=== PATIENT | female | born 1995 | race Caucasian/White ===

== ENCOUNTER 2018-05-20 10:41 | Inpatient (IN) | payer MEDICAID ==
--- NOTE | 2018-05-20 11:39 | History and Physical Report ---
History of Present Illness Date of examination: 05/20/18 Date of admission: 05/20/18 10:41 Chief complaint: Induction of labor History of present illness: Pt is a 23yo BF EDC 05/27/18; EGA 39 0/7 weeks presents to L&D for induction of labor due to Morbid Obesity, Polyhydramnios and suspected macrosomia. She received late care at [facility] since 27 weeks and co-managed by [facility]. records are available and GBS is Positive. Past History Past Medical History: no pertinent history Family/Genetic History: none Social history: no significant social history, single - Obstetrical History Expected Date of Delivery: 05/27/18 Actual Gestation: 39 Week(s) 0 Day(s) : 1 Medications and Allergies Allergies Allergy/AdvReac Type Severity Reaction Status Date / Time Penicillins Allergy Hives Verified 05/16/18 21:11 Home Medications Medication Instructions Recorded Confirmed Last Taken Type No Known Home Medications [No 05/16/18 05/16/18 Unknown History Reported Home Medications] Review of Systems All systems: negative - Physical Exam Breasts: Positive: deferred Cardiovascular: Regular rate Lungs: Positive: Clear to auscultation Abdomen: Positive: normal appearance Genitourinary (Female): Positive: normal external genitalia Uterus: Positive: enlarged Extremities: Positive: normal - Obstetrical FHR: category 1 Uterine Contraction Monitor Mode: External Cervical Dilatation: 3 Cervical Effacement Percentage: 80 station: -2 Uterine Contraction Pattern: Irregular Uterine Tone Measurement Phase: Contraction Uterine Contraction Intensity: Mild Results Result Diagrams: 05/20/18 13:00 All other labs normal. Ultrasound: report reviewed Assessment and Plan - Patient Problems (1) 39 weeks gestation of Onset Date: 05/20/18 Current Visit: Yes Status: Acute Plan to address problem: A: IUP @ 39 0/7 weeks Morbid Obesity Polyhydramnios +GBS P: Admit to L&D for pitocin induction of labor IV Clindamycin (2) Morbid (severe) obesity due to excess calories Onset Date: 05/20/18 Current Visit: Yes Status: Acute (3) Polyhydramnios affecting in third trimester Onset Date: 05/20/18 Current Visit: Yes Status: Acute
[2018-05-20] MEDS ORDERED: SUBLIMAZE IV PRN (11:41)
[2018-05-20] MEDS ORDERED: PHENERGAN PO PRN (11:41)
[2018-05-20] MEDS ORDERED: ZOFRAN IV PRN (11:41)
[2018-05-20] MEDS ORDERED: STADOL IV PRN (11:41)
[2018-05-20] MEDS ORDERED: MINERAL OIL PO PRN (11:41)
[2018-05-20] MEDS ORDERED: BRETHINE SUB-Q PRN (11:41)
[2018-05-20] MEDS ORDERED: BRETHINE IVP PRN (11:41)
[2018-05-20] MEDS ORDERED: XYLOCAINE 2% INFILTRATI ONE (11:41)
[2018-05-20] MEDS ORDERED: LACTATED RINGERS 1,000 ML ONE (11:42)
[2018-05-20] MEDS ORDERED: PITOCin/NS 30 UNIT/500ML 30 UNITS/500 ML BAG IV SCH ×2 (12:00)
[2018-05-20] MEDS ORDERED: PITOCin/NS 20 UNIT/1000ML DRIP 20 UNITS/1,000 ML BAG IV SCH (12:00)
[2018-05-20] MEDS: CLEOCIN 900 MG/50 mL 900 MG/50 ML BAG IV SCH ×2 (14:00→22:00)
[2018-05-20 15:02] LABS: Hematocrit 51.1 % (30.3-42.9); Hemoglobin 16.8 gm/dl (10.1-14.3); Mean Corpuscular HGB Conc 33 % (30-34); Mean Corpuscular Volume 86 fl (79-97); Platelet Count 184 K/mm3 (140-440); Red Blood Count 5.93 M/mm3 (3.65-5.03); Red Cell Distribution Width 13.4 % (13.2-15.2)
[2018-05-20 15:18] LABS: Alanine Aminotransferase 109 units/L (7-56)
[2018-05-20] MEDS: LACTATED RINGERS 1,000 ML IV SCH (17:24)
[2018-05-20] MEDS ORDERED: AMBIEN PO PRN (23:12)
--- NOTE | 2018-05-21 10:26 | Progress Note ---
Assessment and Plan - Patient Problems (1) 39 weeks gestation of Onset Date: 05/20/18 Current Visit: Yes Status: Acute Plan to address problem: A: IUP @ 39 1/7 weeks Morbid Obesity Polyhydramnios +GBS P: Continue with pitocin induction of labor IV Clindamycin (2) Morbid (severe) obesity due to excess calories Onset Date: 05/20/18 Current Visit: Yes Status: Acute (3) Polyhydramnios affecting in third trimester Onset Date: 05/20/18 Current Visit: Yes Status: Acute Subjective - Subjective Date of service: 05/21/18 Principal diagnosis: IUP @ 39 1/7 weeks; Morbid Obesity; Polyhydramnios Interval history: Pt is a 23yo BF EDC 05/27/18; EGA 39 1/7 weeks presents to L&D for induction of labor due to Morbid Obesity, Polyhydramnios and suspected macrosomia. She received late care at [facility] since 27 weeks and co-managed by [facility]. records are available and GBS is Positive. She received low dose pitocin last night, and will increase today. Patient reports: movement normal, contractions, no new complaints, no loss of fluid, no vaginal bleeding Objective - Vital Signs Vital Signs: Vital Signs - 12hr 05/20/18 05/20/18 05/20/18 22:33 22:48 23:03 Temperature Pulse Rate 85 83 81 Respiratory Rate Blood Pressure 127/81 122/62 120/64 05/21/18 05/21/18 05/21/18 00:25 08:05 08:09 Temperature 97.9 F Pulse Rate 78 80 Respiratory 14 17 Rate Blood Pressure 104/53 - Exam Abdomen: Present: normal appearance, soft Uterus: Present: normal FHR: category 1 Uterine Contraction Monitor Mode: External Uterine Contraction Pattern: Irregular Uterine Contraction Intensity: Mild - Labs Labs: Abnormal Labs 05/20/18 05/20/18 13:00 13:00 RBC 5.93 H Hgb 16.8 H Hct 51.1 H AST 80 H ALT 109 H Laboratory Results - last 24 hr 05/20/18 05/20/18 05/20/18 13:00 13:00 13:00 WBC 5.4 RBC 5.93 H Hgb 16.8 H Hct 51.1 H MCV 86 MCH 28 MCHC 33 RDW 13.4 Plt Count 184 AST 80 H ALT 109 H Blood Type O POSITIVE Antibody Screen Negative
[2018-05-21] MEDS: LACTATED RINGERS 1,000 ML IV SCH ×3 (12:00→20:40)
[2018-05-21] MEDS: CLEOCIN 900 MG/50 mL 900 MG/50 ML BAG IV SCH ×2 (13:09→20:40)
[2018-05-21] MEDS ORDERED: NARCAN 2 MG/2 ML IV PRN (14:20)
--- NOTE | 2018-05-21 14:20 | Anesthesia Consultation ---
Anesthesia Consult and Med Hx Date of service: 05/21/18 - Airway Anesthetic Teeth Evaluation: Good ROM Head & Neck: Adequate Mental/Hyoid Distance: Adequate Mallampati Class: Class II Intubation Access Assessment: Probably Good - Pulmonary Exam CTA: Yes - Cardiac Exam Cardiac Exam: RRR - Pre-Operative Health Status ASA Pre-Surgery Classification: ASA2 Proposed Anesthetic Plan: Epidural - Pulmonary Hx Asthma: No - Cardiovascular System Hx Hypertension: No - Central Nervous System Hx Seizures: No Hx Psychiatric Problems: No - Endocrine Hx Renal Disease: No Hx Hypothyroidism: No Hx Hyperthyroidism: No - Hematic Hx Anemia: No Hx Sickle Cell Disease: No - Other Systems Hx Alcohol Use: No
[2018-05-21] MEDS: fentaNYL-BUPIV 2 MCG/ML-0.125% 200 MCG/100 ML BAG EPIDURAL SCH ×2 (14:45→21:34)
--- NOTE | 2018-05-21 19:19 | Progress Note ---
Assessment and Plan - Patient Problems (1) 39 weeks gestation of Onset Date: 05/20/18 Current Visit: Yes Status: Acute Plan to address problem: A: IUP @ 39 1/7 weeks Morbid Obesity Polyhydramnios +GBS P: Continue with pitocin induction of labor Will reevaluate in 2 hours for progress IV Clindamycin (2) Morbid (severe) obesity due to excess calories Onset Date: 05/20/18 Current Visit: Yes Status: Acute (3) Polyhydramnios affecting in third trimester Onset Date: 05/20/18 Current Visit: Yes Status: Acute Subjective - Subjective Date of service: 05/21/18 Principal diagnosis: IUP @ 39 1/7 weeks; Morbid Obesity; Polyhydramnios Interval history: Pt is a 23yo BF EDC 05/27/18; EGA 39 1/7 weeks presents to L&D for induction of labor due to Morbid Obesity, Polyhydramnios and suspected macrosomia. She received late care at [facility] since 27 weeks and co-managed by [facility]. records are available and GBS is Positive. She is currently on pitocin 6mu/min and alvarado q [address] mins [address] epidural in place. Patient reports: loss of fluid, movement normal, contractions, no new complaints, no vaginal bleeding Objective - Vital Signs Vital Signs: Vital Signs - 12hr 05/21/18 05/21/18 05/21/18 08:05 08:09 12:10 Temperature 97.9 F Pulse Rate 80 83 Respiratory 17 Rate Blood Pressure 104/53 126/72 O2 Sat by Pulse Oximetry 05/21/18 05/21/18 05/21/18 12:40 13:12 14:30 Temperature Pulse Rate 90 101 H 95 H Respiratory Rate Blood Pressure 123/75 125/68 O2 Sat by Pulse 98 Oximetry 05/21/18 05/21/18 05/21/18 14:34 14:35 14:36 Temperature Pulse Rate 89 92 H 93 H Respiratory Rate Blood Pressure 134/57 139/64 O2 Sat by Pulse 98 Oximetry 05/21/18 05/21/18 05/21/18 14:40 14:43 14:45 Temperature Pulse Rate 87 86 93 H Respiratory Rate Blood Pressure 117/74 118/73 O2 Sat by Pulse 98 94 97 Oximetry 05/21/18 05/21/18 05/21/18 14:50 14:52 14:54 Temperature Pulse Rate 95 H 96 H 101 H Respiratory Rate Blood Pressure 118/58 109/55 O2 Sat by Pulse 97 Oximetry 05/21/18 05/21/18 05/21/18 14:55 14:58 15:00 Temperature Pulse Rate 112 H 121 H 103 H Respiratory Rate Blood Pressure 88/48 O2 Sat by Pulse 98 100 Oximetry 05/21/18 05/21/18 05/21/18 15:05 15:07 15:10 Temperature Pulse Rate 116 H 115 H 96 H Respiratory Rate Blood Pressure 131/79 131/75 111/53 O2 Sat by Pulse 98 98 Oximetry 05/21/18 05/21/18 05/21/18 15:15 15:19 15:20 Temperature Pulse Rate 73 87 86 Respiratory Rate Blood Pressure 129/68 117/62 O2 Sat by Pulse 99 99 Oximetry 05/21/18 05/21/18 05/21/18 15:21 15:25 15:28 Temperature Pulse Rate 94 H 89 96 H Respiratory Rate Blood Pressure 120/70 116/69 113/57 O2 Sat by Pulse 100 Oximetry 05/21/18 05/21/18 05/21/18 15:30 15:34 15:35 Temperature Pulse Rate 108 H 92 H 97 H Respiratory Rate Blood Pressure 133/75 O2 Sat by Pulse 100 100 Oximetry 05/21/18 05/21/18 05/21/18 15:37 15:40 15:43 Temperature Pulse Rate 90 88 104 H Respiratory Rate Blood Pressure 114/62 110/69 O2 Sat by Pulse 100 Oximetry 05/21/18 05/21/18 05/21/18 15:45 15:46 15:49 Temperature Pulse Rate 86 87 77 Respiratory Rate Blood Pressure 115/75 113/67 O2 Sat by Pulse 100 Oximetry 05/21/18 05/21/18 05/21/18 15:52 15:55 16:07 Temperature Pulse Rate 84 75 82 Respiratory Rate Blood Pressure 115/68 107/57 109/56 O2 Sat by Pulse Oximetry 05/21/18 05/21/18 05/21/18 16:10 16:12 16:16 Temperature Pulse Rate 76 85 81 Respiratory Rate Blood Pressure 99/54 103/60 129/69 O2 Sat by Pulse Oximetry 05/21/18 05/21/18 05/21/18 16:47 17:07 17:12 Temperature Pulse Rate 88 88 104 H Respiratory Rate Blood Pressure 122/71 O2 Sat by Pulse 97 98 Oximetry 05/21/18 05/21/18 05/21/18 17:17 17:22 17:27 Temperature Pulse Rate 85 89 85 Respiratory Rate Blood Pressure O2 Sat by Pulse 97 96 97 Oximetry 05/21/18 05/21/18 05/21/18 17:32 17:37 17:42 Temperature Pulse Rate 88 95 H 108 H Respiratory Rate Blood Pressure O2 Sat by Pulse 97 96 98 Oximetry 05/21/18 05/21/18 05/21/18 17:47 17:52 17:57 Temperature Pulse Rate 89 94 H 78 Respiratory Rate Blood Pressure O2 Sat by Pulse 97 97 96 Oximetry 05/21/18 05/21/18 05/21/18 18:02 18:07 18:12 Temperature Pulse Rate 80 73 89 Respiratory Rate Blood Pressure O2 Sat by Pulse 96 96 96 Oximetry 05/21/18 05/21/18 05/21/18 18:17 18:19 18:22 Temperature Pulse Rate 77 75 74 Respiratory Rate Blood Pressure 101/51 O2 Sat by Pulse 96 96 Oximetry 05/21/18 05/21/18 05/21/18 18:27 18:32 18:37 Temperature Pulse Rate 101 H 85 88 Respiratory Rate Blood Pressure O2 Sat by Pulse 97 98 97 Oximetry 05/21/18 05/21/18 05/21/18 18:42 18:47 18:52 Temperature Pulse Rate 88 87 103 H Respiratory Rate Blood Pressure 113/57 O2 Sat by Pulse 97 97 96 Oximetry 05/21/18 05/21/18 05/21/18 18:57 19:02 19:07 Temperature Pulse Rate 83 88 85 Respiratory Rate Blood Pressure O2 Sat by Pulse 97 96 96 Oximetry 05/21/18 19:12 Temperature Pulse Rate 89 Respiratory Rate Blood Pressure O2 Sat by Pulse 97 Oximetry - Exam Uterus: Present: normal FHR: category 1 Cervical Dilatation: 4.5 Cervical Effacement Percentage: 70 station: -2 Uterine Contraction Pattern: Regular Uterine Tone Measurement Phase: Contraction Uterine Contraction Intensity: Strong/Firm - Labs Labs: Abnormal Labs 05/20/18 05/20/18 13:00 13:00 RBC 5.93 H Hgb 16.8 H Hct 51.1 H AST 80 H ALT 109 H Laboratory Results - last 24 hr 05/20/18 13:00 RPR Nonreactive
--- NOTE | 2018-05-21 21:22 | Procedure Note ---
Date of procedure: 05/21/18 (epidural placement) Pre-op diagnosis: term labor Procedure: placement of epidural midline identified as pt in sitting position. TO conducted. sterile prep with betadine and gloves, mask, and sterile drape in place. skin localized with 1% lido fro epidural kit and then 150mm touhgy advanced via loss of resistance to ascertain space, cath advanced and test dose administered which was negative. dressing placed in sterile fashion bolus of 8cc of .25% bup. when in supine position. BP did respond to epidural placement and treated with one dose of 100mcgs of phenlephrine. Patient then stable and comfortable.procedure completed at 1500 Anesthesia: epidural Estimated blood loss: none Pathology: none Condition: stable Disposition: no change
[2018-05-21] MEDS ORDERED: SODIUM CHLORIDE FLUSH SYRINGE 10 ML IV NR (23:45)
[2018-05-21] MEDS ORDERED: PITOCin/NS 20 UNIT/1000ML DRIP 20 UNITS/1,000 ML BAG IV SCH (23:45)
[2018-05-21] MEDS ORDERED: CYTOTEC ONE (23:48)
--- NOTE | 2018-05-21 23:57 | Procedure Note ---
OB Delivery Note - Delivery Date of Delivery: 05/21/18 Surgeon: SALEEM DUNCAN Estimated blood loss: 300cc - Vaginal Delivery presentation: vertex Delivery position: OA Intrapartum events: hydramnios Delivery induction: oxytocin Delivery augmentation: rupture of membranes, pitocin Delivery monitor: external FHT, external uterine Route of delivery: Delivery placenta: spontaneous Delivery cord: nuchal cord, 3 umbilical vessels Episiotomy: none Delivery laceration: 2nd degree Delivery repair: vicryl Anesthesia: epidural Delivery comments: Infant delivered OA and placed on Mom's chest for [id number] bonding and delayed cord clamping, cut by Dad - A at 1 minute: 8 at 5 minutes: 9 Gender: Female ([id number])
[2018-05-21] MEDS ORDERED: ZOFRAN IV PRN (23:59)
[2018-05-21] MEDS ORDERED: TYLENOL PO PRN (23:59)
[2018-05-21] MEDS ORDERED: PHENERGAN PR PRN (23:59)
[2018-05-21] MEDS ORDERED: DULCOLAX PR PRN (23:59)
[2018-05-21] MEDS ORDERED: BENADRYL PO PRN (23:59)
[2018-05-21] MEDS ORDERED: PHENERGAN PO PRN (23:59)
[2018-05-21] MEDS ORDERED: LANSINOH TP PRN (23:59)
[2018-05-21] MEDS ORDERED: TUCKS PAD TP PRN (23:59)
[2018-05-21] MEDS ORDERED: MILK OF MAGNESIA PO PRN (23:59)
[2018-05-21] MEDS ORDERED: CYTOTEC PR ONE (23:59)
[2018-05-22] MEDS: NORCO 5/325 PO PRN ×3 (02:44→22:26)
[2018-05-22] MEDS: IBUPROFEN PO SCH ×3 (02:45→23:43)
[2018-05-22 11:52] LABS: Hematocrit 30.6 % (30.3-42.9); Hemoglobin 10.4 gm/dl (10.1-14.3)
[2018-05-22] MEDS: COLACE PO SCH ×2 (12:57→22:26)
[2018-05-22] MEDS: FEOSOL PO SCH ×2 (12:57→22:26)
[2018-05-22] MEDS: PRENATAL VITAMIN PO SCH (12:58)
[2018-05-22] MEDS ORDERED: DERMOPLAST TP PRN (23:23)
[2018-05-23] MEDS ORDERED: BOOSTRIX IM ONE (06:00)
[2018-05-23] MEDS ORDERED: M-M-R II VACCINE SUB-Q ONE (06:00)
[2018-05-23] MEDS: NORCO 5/325 PO PRN (06:05)
[2018-05-23] MEDS: IBUPROFEN PO SCH ×4 (06:07→17:35)
--- NOTE | 2018-05-23 09:23 | Progress Note ---
Assessment and Plan - Patient Problems (1) 39 weeks gestation of Onset Date: 05/20/18 Current Visit: Yes Status: Resolved (2) Morbid (severe) obesity due to excess calories Onset Date: 05/20/18 Current Visit: Yes Status: Chronic (3) Polyhydramnios affecting in third trimester Onset Date: 05/20/18 Current Visit: Yes Status: Resolved (4) (normal spontaneous vaginal delivery) Current Visit: Yes Status: Resolved Plan to address problem: A: S/P - PPD #1 Doing well Vulvar lesion P: May go home tomorrow Begin Keflex 500mg Q6H Subjective - Subjective Date of service: 05/23/18 Principal diagnosis: s/p - PPD #1 Interval history: Pt is feeling well, complaining of a boil on her vulva. Bleeding has improved. Patient reports: appetite normal, voiding normally, pain well controlled, flatus, ambulating normally, no dizzy ambulation, no nauseated : doing well, nursing well, bottle feeding Objective - Vital Signs Latest vital signs: Vital Signs Temp Pulse Resp BP BP Pulse Ox 05/23/18 07:25 97.3 F L 75 18 125/72 05/22/18 23:43 98.6 F 93 H 20 117/65 98 05/22/18 16:53 98 F 85 18 103/54 05/22/18 12:28 98 F 88 18 116/71 Intake and Output 05/22/18 05/23/18 05/23/18 22:59 06:59 14:59 Intake Total 720 480 240 Balance 720 480 240 Intake: Oral 720 480 240 Other: Total, Intake Amount 240 240 240 # Voids Void 1 1 - Exam Breasts: Present: deferred Abdomen: Present: normal appearance, soft Uterus: Present: normal, firm, fundal height below umbilicus - Labs Labs: Laboratory Tests 05/20/18 05/20/18 05/20/18 13:00 13:00 13:00 WBC 5.4 RBC 5.93 H Hgb 16.8 H Hct 51.1 H MCV 86 MCH 28 MCHC 33 RDW 13.4 Plt Count 184 AST ALT RPR Nonreactive Blood Type O POSITIVE Antibody Screen Negative 05/20/18 05/22/18 13:00 11:33 WBC RBC Hgb 10.4 D Hct 30.6 D MCV MCH MCHC RDW Plt Count AST 80 H ALT 109 H RPR Blood Type Antibody Screen
--- NOTE | 2018-05-23 09:37 | Discharge Summary ---
Providers - Providers Date of Admission: 05/20/18 10:41 Date of discharge: 05/24/18 Attending physician: SALEEM DUNCAN Primary care physician: SALEEM DUNCAN Hospitalization Reason for admission: induction of labor, IUP at term, other (Polyhydramnios; Morbid Obesity) Delivery: Episiotomy: none Laceration: 2nd degree Other procedures: none complications: none Discharge diagnosis: IUP at term delivered [place] baby: female Hospital course: Pt is a 23yo BF EDC 05/27/18; EGA 39 0/7 weeks who presented to L&D for induction of labor due to Morbid Obesity, Polyhydramnios and suspected macrosomia. She received late care at [facility] since 27 weeks and co-managed by [facility]. She was induced with cervidil and pitocin and subsequently delivered a 4093gm female infant. Post care was unremarkable except for a vulvar lesion which will be treated with PO Keflex 500mg Q6H. She will therefore be discharged to home on PPD #2 in stable condition. Condition at discharge: Good Disposition: DC-01 TO HOME OR SELFCARE - Discharge Diagnoses (1) 39 weeks gestation of Status: Resolved (2) Morbid (severe) obesity due to excess calories Status: Chronic (3) Polyhydramnios affecting in third trimester Status: Resolved (4) (normal spontaneous vaginal delivery) Status: Resolved Plan - Discharge Medications Prescriptions: Benzocaine/Menthol [Dermoplast] 1 spray TP PRN PRN #1 can PRN Reason: Episiotomy Pain cephALEXin [Keflex] 500 mg PO Q6HR #28 capsule Ferrous Sulfate [Feosol 325 MG tab] 325 mg PO BID #60 tablet HYDROcodone/APAP 5-325 [Hodge 5-325 mg TAB] 1 each PO Q6H PRN #20 tablet PRN Reason: Pain, Moderate (4-6) Ibuprofen [Motrin 600 MG tab] 600 mg PO Q6HR #30 tablet Vit-Fe Fumar-FA [ Vitamin] 1 each PO QDAY #30 tablet - Provider Discharge Summary Activity: routine, no sex for 6 weeks, no heavy lifting 4 weeks, no strenuous exercise Diet: routine Instructions: routine Additional instructions: [] Smoking cessation referral if applicable(refer to patient education folder for contact #) [] Refer to [facility]'s [facility] Booklet Call your doctor immediately for: * Fever > 100.5 * Heavy vaginal bleeding ( >1 pad per hour) * Severe persistent headache * Shortness of breath * Reddened, hot, painful area to leg or breast * Drainage or odor from incision. * Keep incision clean and dry at all times and follow doctor's instructions regarding bathing/showering - Follow up plan Follow up: SALEEM DUNCAN MD [Primary Care Provider] - 14 Days
[2018-05-23] MEDS: FEOSOL PO SCH ×2 (09:59→22:05)
[2018-05-23] MEDS: PRENATAL VITAMIN PO SCH (09:59)
[2018-05-23] MEDS: COLACE PO SCH ×2 (09:59→22:06)
[2018-05-23] MEDS: KEFLEX PO SCH ×2 (12:33→17:37)
[2018-05-24] MEDS: KEFLEX PO SCH ×2 (00:19→08:01)
[2018-05-24] MEDS: IBUPROFEN PO SCH (00:19)
[2018-05-24] MEDS: NORCO 5/325 PO PRN ×2 (00:20→08:09)
[2018-05-24 09:00] VITALS: BP 117/68
[2018-05-24] MEDS ORDERED: CLARITIN PO SCH (10:00)
[2018-05-24] MEDS: PRENATAL VITAMIN PO SCH (11:02)
[2018-05-24] MEDS: COLACE PO SCH (11:02)
[2018-05-24] MEDS: FEOSOL PO SCH (11:02)
== END 2018-05-24 12:40 | disposition home or self-care (01) | DRG 775 ==
LOC: LD 10:41 → OB 05-22 02:34
PROVIDERS: ADMIT Obstetrics & Gynecology; ATTEND Obstetrics & Gynecology
PROC: 3E033VJ Introduction of Other Hormone into Peripheral Vein, Percutaneous Approach (ICD-10-PCS; 2018-05-20)
PROC: 10E0XZZ Delivery of Products of Conception, External Approach (ICD-10-PCS; principal; 2018-05-21)
PROC: 0KQM0ZZ Repair Perineum Muscle, Open Approach (ICD-10-PCS; 2018-05-21)
PROC: 3E0R3BZ Introduction of Anesthetic Agent into Spinal Canal, Percutaneous Approach (ICD-10-PCS; 2018-05-21)
PROC: 00HU33Z Insertion of Infusion Device into Spinal Canal, Percutaneous Approach (ICD-10-PCS; 2018-05-21)
PROC: 3E0234Z Introduction of Serum, Toxoid and Vaccine into Muscle, Percutaneous Approach (ICD-10-PCS; 2018-05-23)
DX: O99.824 Streptococcus B carrier state complicating childbirth (principal); O40.3XX0 Polyhydramnios, third trimester, not applicable or unspecified; O99.214 Obesity complicating childbirth; E66.01 Morbid (severe) obesity due to excess calories; O70.1 Second degree perineal laceration during delivery; Z23 Encounter for immunization; Z3A.39 39 weeks gestation of pregnancy; Z37.0 Single live birth; Z88.0 Allergy status to penicillin
CPT/HCPCS: 36415; 59025; 84450; 84460; 85014; 85018; 85027; 86592; 86850; 86900; 86901; 90715; 96360; 96361; 96365; 96366; 96367; 96368; G0378; J0595; J2405; J2590; J7120